=== PATIENT | female | born 1985 | race Two or more races ===

== ENCOUNTER → 2017-05-09 | Outpatient (CLI) | payer OTHER ==
[~2017-05-09] MED LIST: AZIT250 PO; Ativan1 MG PO; BC PATCH; BCP; BENZ100A PO; BIRTH CONTROL; Bactrim Ds Tab1 EACH PO; Bentyl20 MG PO; CEPH500 PO; CRUTCH4 USE; CYCL10 PO; Chantix1 EACH; DIAZ5 PO; Dicyclomine HCl20 MG PO; ERYT1OIN RIGHTEYE; FOLI1 PO; GABA300 PO; GLUCOPHAGE 500 MG; HYDACE5 PO; HYDGUAL120 PO; Hair, Skin & N1 EACH PO; IBUP800; IBUP800 PO; IBUPROFEN 400 MG; IUD; Keflex500 MG PO; MAGCHL64ER; METTREX2.5 PO; MULVITMINE; MULVITMINE PO; NAPR500 PO; NAPR550 PO; NYQUIL; NYST237S MT; Norco 5-325 Ta1 EACH PO; OXYACE5T PO; Omeprazole20 M1 PO; POTBIC25; PROM25 PO; Pseudoephedrine30 MG PO; Questran4 GM PO; RXTRAM50 PO; SULF10OPSA OS; Silvadene20 GM TOP; TRAM50 PO; TUMERIC; VARE1 PO; WITHAZ50T; Zithromax250 MG PO
== END ==
LOC: LAB SHORT 07:12 → PLD 07:12
DX: R21 Rash and other nonspecific skin eruption (principal)
CPT/HCPCS: 88312

== ENCOUNTER 2017-08-31 21:20 | Emergency (ER) | payer OTHER ==
[~2017-08-31] VITALS: Ht 152.4 cm; Wt 99.8 kg
[~2017-08-31 21:20] MED LIST changes: -BENZ100A PO; -Dicyclomine HCl20 MG PO; -FOLI1 PO; -IBUP800; -METTREX2.5 PO; -NYST237S MT; -Omeprazole20 M1 PO; -Pseudoephedrine30 MG PO; -Questran4 GM PO
== END 2017-08-31 23:10 | disposition home or self-care (01) ==
LOC: ER 21:20
DX: J02.9 Acute pharyngitis, unspecified (principal); Z88.0 Allergy status to penicillin; Z88.5 Allergy status to narcotic agent; Z79.899 Other long term (current) drug therapy; Z79.2 Long term (current) use of antibiotics; E11.9 Type 2 diabetes mellitus without complications; Z87.891 Personal history of nicotine dependence
CPT/HCPCS: 87081; 87430; 99283

== ENCOUNTER 2017-12-12 19:42 | Emergency (ER) | payer OTHER ==
[~2017-12-12] VITALS: Ht 152.4 cm; Wt 101.2 kg
[~2017-12-12 19:42] MED LIST changes: +BENZ100A PO; +Dicyclomine HCl20 MG PO; +FOLI1 PO; +IBUP800; +METTREX2.5 PO; +Omeprazole20 M1 PO; +Pseudoephedrine30 MG PO; +Questran4 GM PO
[2017-12-12] MEDS ORDERED: NYST237S MT (20:59)
== END 2017-12-12 21:06 | disposition home or self-care (01) ==
LOC: ER 19:42
DX: J02.9 Acute pharyngitis, unspecified (principal); E11.9 Type 2 diabetes mellitus without complications; F17.290 Nicotine dependence, other tobacco product, uncomplicated; Z88.0 Allergy status to penicillin; Z88.5 Allergy status to narcotic agent; Z79.899 Other long term (current) drug therapy
CPT/HCPCS: 87081; 87147; 87430; 99283

== ENCOUNTER → 2018-07-31 | Outpatient (CLI) | payer OTHER ==
[~2018-07-31] MED LIST changes: +NYST237S MT
[2018-07-31 10:48] LABS: Source, Urine Clean Catch
[2018-07-31 11:45] LABS: Bilirubin, Urine Neg (Neg); Blood, Urine 1+ (Neg); Glucose Qualitative, Urine Neg (Neg); Ketones, Urine Neg (Neg); Leukocyte Esterase, Urine 1+ (Neg); Nitrite, Urine Neg (Neg); Protein, Urine Neg (Neg); Urobilinogen, Urine NORM (Normal)
[2018-07-31 13:00] LABS: Appearance, Urine Clear (Clear); Color, Urine Yellow (P-Yellow)
[2018-07-31 13:02] LABS: Red Blood Cells, Urine 0-2 /hpf (0-2); Squamous Epithelial Cells Mod /hpf (Few)
[2018-07-31 13:03] LABS: Bacteria Few /hpf
[2018-07-31 14:40] LABS: Candida species (DNA Probe) Positive (NEGATIVE); G. vaginalis (DNA Probe) Negative (NEGATIVE); T. vaginalis (DNA Probe) Negative (NEGATIVE)
== END | disposition home or self-care (01) ==
LOC: LAB FUT 05-13 13:30 → LAB SHORT 10:42 → LAB 10:42
PROVIDERS: Nurse Practitioner Family
DX: R30.0 Dysuria (principal); N89.8 Other specified noninflammatory disorders of vagina
CPT/HCPCS: 81001; 87086; 87480; 87510; 87660

== ENCOUNTER → 2018-08-02 | Outpatient (CLI) | payer OTHER ==
[2018-08-02 17:44] LABS: Appearance, Urine Clear (Clear); Bilirubin, Urine Neg (Neg); Blood, Urine Neg (Neg); Color, Urine Yellow (P-Yellow); Glucose Qualitative, Urine Neg (Neg); Ketones, Urine 1+ (Neg); Leukocyte Esterase, Urine Neg (Neg); Nitrite, Urine Neg (Neg); Protein, Urine Neg (Neg); Specific Gravity, Urine 1.015 (1.003-1.022); Urobilinogen, Urine NORM (Normal)
== END | disposition home or self-care (01) ==
LOC: LAB 13:20 → LAB SHORT 13:20
PROVIDERS: Nurse Practitioner Family
DX: R30.0 Dysuria (principal)
CPT/HCPCS: 81003

== ENCOUNTER 2018-08-25 22:45 | Emergency (ER) | payer OTHER ==
[~2018-08-25] VITALS: Ht 152.4 cm; Wt 102.5 kg
== END 2018-08-25 23:44 | disposition left against medical advice (07) ==
LOC: ER 22:45
DX: Z53.21 Procedure and treatment not carried out due to patient leaving prior to being seen by health care provider (principal)

== ENCOUNTER → 2018-10-30 | Outpatient (CLI) | payer OTHER ==
[~2018-10-30] MED LIST changes: +COSENTYX P150 MG/11 SQ; +ONDA4ODT
[2018-10-30 14:28] LABS: Candida species (DNA Probe) Negative (NEGATIVE); G. vaginalis (DNA Probe) Negative (NEGATIVE); T. vaginalis (DNA Probe) Negative (NEGATIVE)
== END | disposition home or self-care (01) ==
LOC: LAB 08:32 → LAB SHORT 08:32
PROVIDERS: Family Medicine
DX: B37.3 Candidiasis of vulva and vagina (principal); N89.8 Other specified noninflammatory disorders of vagina
CPT/HCPCS: 87480; 87510; 87660

== ENCOUNTER 2018-11-04 01:32 | Emergency (ER) | payer OTHER ==
[~2018-11-04] VITALS: Ht 154.9 cm; Wt 97.5 kg
[~2018-11-04 01:32] MED LIST changes: -COSENTYX P150 MG/11 SQ; -ONDA4ODT
[2018-11-04] MEDS ORDERED: ONDA4ODT (01:52)
[2018-11-04] MEDS ORDERED: COSENTYX P150 MG/11 SQ (01:53)
[2018-11-04 03:00] LABS: Calcium, Ionized (POC) 1.25 mmol/L (1.10-1.46); Chloride (POC) 105 mmol/L (98-108); Creatinine (POC) 0.9 mg/dL (0.6-1.0); Glucose (ISTAT POC) 102 mg/dL (70-99); Hemoglobin (POC) 13.3 g/dL (12.0-16.0); Potassium (POC) 3.7 mmol/L (3.5-5.5); Sodium (POC) 141 mmol/L (135-148); Total CO2 (POC) 24 mmol/L (21-32)
== END 2018-11-04 03:16 | disposition home or self-care (01) ==
LOC: ER 01:32
PROVIDERS: Emergency Medicine
DX: R20.2 Paresthesia of skin (principal); E11.9 Type 2 diabetes mellitus without complications; Z87.891 Personal history of nicotine dependence
CPT/HCPCS: 36415; 80047; 85014; 93005; 93010; 99283-25

== ENCOUNTER → 2018-12-14 | Outpatient (CLI) | payer OTHER ==
[~2018-12-14] MED LIST changes: +COSENTYX P150 MG/11 SQ; +ONDA4ODT
[2018-12-15 07:02] LABS: Candida species (DNA Probe) Positive (NEGATIVE); G. vaginalis (DNA Probe) Positive (NEGATIVE); T. vaginalis (DNA Probe) Negative (NEGATIVE)
== END | disposition home or self-care (01) ==
LOC: LAB SHORT 13:22 → LAB 13:22
PROVIDERS: Nurse Practitioner Family
DX: N89.8 Other specified noninflammatory disorders of vagina (principal); B37.3 Candidiasis of vulva and vagina
CPT/HCPCS: 87070; 87205; 87480; 87510; 87660

== ENCOUNTER → 2019-02-28 | Outpatient (CLI) | payer OTHER | END | disposition home or self-care (01) | LOC: LAB 18:00 → LAB SHORT 18:00 | DX: J02.9 Acute pharyngitis, unspecified (principal) | CPT/HCPCS: 87081 ==

== ENCOUNTER → 2019-03-13 | Outpatient (CLI) | payer OTHER ==
[2019-03-14 10:45] LABS: Candida species (DNA Probe) Positive (NEGATIVE); G. vaginalis (DNA Probe) Positive (NEGATIVE); T. vaginalis (DNA Probe) Negative (NEGATIVE)
== END | disposition home or self-care (01) ==
LOC: LAB 12:32 → LAB SHORT 12:32
PROVIDERS: Nurse Practitioner
DX: N76.0 Acute vaginitis (principal)
CPT/HCPCS: 87070; 87205; 87480; 87510; 87660

== ENCOUNTER → 2019-06-12 | Outpatient (CLI) | payer OTHER ==
[2019-06-12 18:02] LABS: Campylobacter Sp Not Detected (NOT DETECT)
[2019-06-12 18:03] LABS: Adenovirus F 40/41 Not Detected (NOT DETECT); Astrovirus Not Detected (NOT DETECT); Cryptosporidium Not Detected (NOT DETECT); Cyclospora Cayetanensis Not Detected (NOT DETECT); E. Coli O157 Not Detected (NOT DETECT); Entamoeba Histolytica Not Detected (NOT DETECT); Enteroaggregative E. coli-EAEC Not Detected (NOT DETECT); Enteropathogenic E. coli-EPEC Not Detected (NOT DETECT); Enterotoxigenic E. coli-ETEC Not Detected (NOT DETECT); Giardia Lamblia Not Detected (NOT DETECT); Norovirus GI/GII Detected (NOT DETECT); Plesiomonas Shigelloides Not Detected (NOT DETECT); Rotavirus A Not Detected (NOT DETECT); Salmonella Sp Not Detected (NOT DETECT); Sapovirus Not Detected (NOT DETECT); Shiga Toxin-prod E. coli-STEC Not Detected (NOT DETECT); Shigella/Enteroin E. coli-EIEC Not Detected (NOT DETECT); Vibrio Cholerae Not Detected (NOT DETECT); Vibrio Sp Not Detected (NOT DETECT); Yersinia Enterocolitica Not Detected (NOT DETECT)
== END | disposition home or self-care (01) ==
LOC: LAB 12:56 → LAB SHORT 12:56
PROVIDERS: Nurse Practitioner Family
DX: R10.84 Generalized abdominal pain (principal); R19.7 Diarrhea, unspecified
CPT/HCPCS: 0097U; 87177; 87209

== ENCOUNTER → 2020-02-15 | Outpatient (CLI) | payer OTHER | END | disposition home or self-care (01) | LOC: LAB SHORT 11:05 → LAB 11:05 | DX: J02.9 Acute pharyngitis, unspecified (principal) | CPT/HCPCS: 87081 ==

== ENCOUNTER 2020-03-22 15:59 | Emergency (ER) | payer OTHER ==
[~2020-03-22] VITALS: Ht 152.4 cm; Wt 100.7 kg
== END 2020-03-22 19:11 | disposition left against medical advice (07) ==
LOC: ER 15:59
DX: K59.00 Constipation, unspecified (principal); Z53.21 Procedure and treatment not carried out due to patient leaving prior to being seen by health care provider; E11.9 Type 2 diabetes mellitus without complications; Z87.891 Personal history of nicotine dependence; Z79.899 Other long term (current) drug therapy
CPT/HCPCS: 74022